=== PATIENT | female | born 1990 | race American Indian/Alaskan Native ===

== ENCOUNTER 2017-07-08 20:30 | Outpatient (CLI) | payer MEDICAID ==
[2017-07-08 20:47] VITALS: BP 127/73
[2017-07-08] MEDS ORDERED: LACTATED RINGERS 1,000 ML ONE (21:06)
[2017-07-08] MEDS ORDERED: LACTATED RINGERS 1,000 ML IV ONE (21:14)
[2017-07-08] MEDS ORDERED: ZOFRAN IV ONE (21:56)
[2017-07-08 22:05] LABS: Hematocrit 34.9 % (30.3-42.9); Hemoglobin 12.1 gm/dl (10.1-14.3); Mean Corpuscular HGB Conc 35 % (30-34); Mean Corpuscular Hemoglobin 32 pg (28-32); Mean Corpuscular Volume 93 fl (79-97); Platelet Count 215 K/mm3 (140-440); Red Blood Count 3.77 M/mm3 (3.65-5.03); Red Cell Distribution Width 14.3 % (13.2-15.2); White Blood Count 9.8 K/mm3 (4.5-11.0)
[2017-07-08 22:25] LABS: Alanine Aminotransferase 11 units/L (7-56); Albumin 3.8 g/dL (3.9-5); Albumin/Globulin Ratio 1.4 %; Alkaline Phosphatase 52 units/L (35-129); Anion Gap 20 mmol/L; Blood Urea Nitrogen 4 mg/dL (7-17); Calcium 8.7 mg/dL (8.4-10.2); Carbon Dioxide 19 mmol/L (22-30); Chloride 101.8 mmol/L (98-107); Glucose 68 mg/dL (65-100); Potassium 4.2 mmol/L (3.6-5.0); Sodium 137 mmol/L (137-145); Total Protein 6.5 g/dL (6.3-8.2)
--- NOTE | 2017-07-09 01:07 | Event Note ---
Date: 07/08/17 26 year old female presents to triage at 25-26 weeks gestation complaining of nausea since last night. States she has vomited a small amount a few times. Patient denies diarrhea. She denies fever, chills, malaise, flank pain, dysuria , urinary frequency, contractions, vaginal bleeding, or leaking of fluid. Patient denies any sick contacts or rashes. Patient denies falls or abdominal trauma. She denies eating at any restaurants. Patient reports active movement. She denies any complications during this ; she denies health problems. Patient is well appearing, alert, oriented, NAD. VSS. Abdomen soft, nontender, gravid. No contractions noted per monitor or palpated. No vaginal bleeding or leaking of fluid seen. FHR normal rate, AGA. CBC, CMP, urinalysis done. IV hydration with Lactated Ringers. IV Zofran. Will discuss lab results with patient when they become available.
[2017-07-09 01:39] LABS: Bilirubin,Urine NEG (Negative); Blood,Urine NEG (Negative); Ketones,Urine NEG (Negative); Leukocyte Esterase,Urine NEG (Negative); Mucus,Urine FEW /HPF; Nitrite,Urine NEG (Negative); Protein,Urine <15 mg/dL mg/dL (Negative); RBC,Urine < 1.0 /HPF (0.0-6.0); Urobilinogen,Urine < 2.0 mg/dL (<2.0); WBC,Urine < 1.0 /HPF (0.0-6.0)
== END 2017-07-09 03:00 | disposition home or self-care (01) ==
LOC: TRG 20:30
PROVIDERS: ATTEND Obstetrics & Gynecology
DX: O21.2 Late vomiting of pregnancy (principal); O47.03 False labor before 37 completed weeks of gestation, third trimester; Z3A.26 26 weeks gestation of pregnancy
CPT/HCPCS: 36415; 80053; 81001; 85027; 96360; 96361; 96374; J2405; J7120

== ENCOUNTER 2017-07-09 02:52 | Emergency (ER) | payer MEDICAID ==
[2017-07-09 03:23] VITALS: BP 124/77
[2017-07-09 04:02] LABS: Basophils % (Auto) 0.4 % (0.0-1.8); Eosinophils % (Auto) 0.8 % (0.0-4.3); Hematocrit 34.6 % (30.3-42.9); Hemoglobin 11.8 gm/dl (10.1-14.3); Mean Corpuscular HGB Conc 34 % (30-34); Mean Corpuscular Hemoglobin 32 pg (28-32); Mean Corpuscular Volume 94 fl (79-97); Platelet Count 202 K/mm3 (140-440); Red Blood Count 3.67 M/mm3 (3.65-5.03); Red Cell Distribution Width 14.4 % (13.2-15.2)
[2017-07-09 04:18] LABS: Anion Gap 18 mmol/L; Blood Urea Nitrogen 3 mg/dL (7-17); Calcium 8.7 mg/dL (8.4-10.2); Carbon Dioxide 20 mmol/L (22-30); Chloride 102.2 mmol/L (98-107); Glucose 77 mg/dL (65-100); Potassium 3.7 mmol/L (3.6-5.0); Sodium 136 mmol/L (137-145)
== END 2017-07-09 04:00 | disposition left against medical advice (07) ==
LOC: ED 02:52
DX: R42 Dizziness and giddiness (principal); Z53.21 Procedure and treatment not carried out due to patient leaving prior to being seen by health care provider
CPT/HCPCS: 36415; 80048; 84703; 85025

== ENCOUNTER 2017-08-01 10:34 | Outpatient (CLI) | payer MEDICAID ==
[2017-08-01] MEDS ORDERED: BRETHINE SUB-Q SCH (12:00)
[2017-08-01] MEDS ORDERED: LACTATED RINGERS 500 ML IV ONE (12:30)
[2017-08-01 12:48] VITALS: BP 116/64
== END 2017-08-01 12:25 | disposition home or self-care (01) ==
LOC: TRG 10:34
PROVIDERS: ATTEND Obstetrics & Gynecology
DX: O47.02 False labor before 37 completed weeks of gestation, second trimester (principal); Z3A.27 27 weeks gestation of pregnancy
CPT/HCPCS: 59025

== ENCOUNTER 2019-01-13 02:34 | Outpatient (CLI) | payer MEDICAID ==
[2019-01-13 04:13] LABS: Bilirubin,Urine NEG (Negative); Blood,Urine NEG (Negative); Color,Urine Yellow (Yellow); Protein,Urine <15 mg/dL mg/dL (Negative); Urobilinogen,Urine < 2.0 mg/dL (<2.0)
[2019-01-13] MEDS ORDERED: ZOFRAN IM ONE (04:13)
[2019-01-13] MEDS ORDERED: LACTATED RINGERS 1,000 ML IV ONE (04:13)
[2019-01-13] MEDS ORDERED: COLACE PO ONE (04:15)
[2019-01-13] MEDS ORDERED: FLEET PR ONE (06:35)
--- NOTE | 2019-01-13 07:31 | Progress Note ---
Assessment and Plan A: at 22 weeks gestation. Nausea. Constipation. Abdominal pain. P: IV hydration. IV Zofran. Stool softener/enema. To ED for further evaluation. Subjective - Subjective Date of service: 01/20/19 Principal diagnosis: Constipation; 22 weeks gestation Interval history: 28 year old presents at 22 weeks gestation complaining of nausea and vomiting during her entire ; also complains of constipation. She denies contractions, vaginal bleeding, leaking of water. She reports she feels movement. No fever; no urinary symptoms or flank pain. Denies vaginal discharge. Reports abdominal pain intermittently for past few days; thinks she needs to have BM. Patient reports: movement normal, no loss of fluid, no vaginal bleeding, no contractions Objective - Vital Signs Vital Signs: Vital Signs - 12hr 01/13/19 01/13/19 01/13/19 03:12 03:22 04:28 Pulse Rate 75 75 69 Respiratory 18 Rate Blood Pressure 110/60 108/63 Blood Pressure 110/60 [Left] - Exam Abdomen: Present: normal appearance, soft. Absent: distention, tenderness, gua rding, rigidity Uterus: Present: normal, fundal height above umbilicus. Absent: tenderness FHR: other (AGA) Uterine Contraction Monitor Mode: External Uterine Contraction Pattern: Absent Extremities: normal - Labs Labs: Abnormal Labs 01/13/19 03:30 Urine pH 8.0 H Laboratory Results - last 24 hr 01/13/19 03:30 Urine Color Yellow Urine Turbidity Slightly-cloudy Urine pH 8.0 H Ur Specific [place] 1.014 Urine Protein <15 mg/dl Urine Glucose (UA) Neg Urine Ketones Neg Urine Blood Neg Urine Nitrite Neg Urine Bilirubin Neg Urine Urobilinogen < 2.0 Ur Leukocyte Esterase Sm Urine WBC (Auto) 1.0 Urine RBC (Auto) 1.0 U Epithel Cells (Auto) 5.0
--- NOTE | 2019-01-13 11:53 | Ultrasound Report ---
ULTRASOUND ABDOMEN LIMITED: TECHNIQUE: Transabdominal ultrasound with color Doppler interrogation. HISTORY: Pain. COMPARISON: none. FINDINGS: LIVER: Normal. BILIARY SYSTEM: Normal. PANCREAS: Normal. RIGHT KIDNEY: Normal. PROXIMAL AORTA: Normal. ASCITES: None. IMPRESSION: Unremarkable exam.
[2019-01-13 14:45] VITALS: BP 116/56
== END 2019-01-13 14:49 | disposition home or self-care (01) ==
LOC: TRG 02:34 → LD 12:28 → TRG 14:49
PROVIDERS: ATTEND Obstetrics & Gynecology
DX: O26.892 Other specified pregnancy related conditions, second trimester (principal); R10.9 Unspecified abdominal pain; K59.00 Constipation, unspecified; O21.2 Late vomiting of pregnancy; Z3A.22 22 weeks gestation of pregnancy
CPT/HCPCS: 59025; 76705; 81001; 96360; 96372; J2405; J7120